=== PATIENT | male | born 1970 | race Caucasian/White ===

== ENCOUNTER 2018-08-16 11:51 | Outpatient (CLI) | payer OTHER ==
--- NOTE | 2018-08-16 13:52 | RAD ---
THREE VIEWS RIGHT FOOT: HISTORY: Displaced 1st metatarsal fracture. FINDINGS: AP, lateral, and oblique views left foot are obtained. Three views of the left foot demonstrate an area of lucency involving the lateral aspect of the base of the 1st metatarsal. This may represent a possible fracture. Age is indeterminate. Correlate wit h history. No evidence of acute left foot abnormality is seen. There is some soft tissue swelling along the eamon shaquille aspect of the left foot. IMPRESSION: Lateral aspect proximal 1st metatarsal fracture of indeterminate age. POS: [facility]
--- NOTE | 2018-08-16 13:58 | RAD ---
LEFT ANKLE THREE VIEWS: HISTORY: History of displaced fracture, first metatarsal. TECHNIQUE: AP, lateral, and oblique views of the left ankle. FINDINGS: Three views of the left ankle demonstrate an old, healed fracture involving the distal aspect of the left fibula. There appears to be an area of subtle radiolucency involving the medial malleolus. Thi s may represent an acute fracture. Correlate with clinical exam. Soft tissue ossification seen posterior to the distal tibia. IMPRESSION: Possible medial malleolar fracture. Correlate with previous old radiographs. Those are not availabl e at this institution. They were apparently performed at the [facility]. POS: [facility]
== END 2018-08-16 11:52 | disposition home or self-care (01) ==
LOC: BICRAD 11:51
PROVIDERS: ATTEND Podiatrist
DX: Z09 Encounter for follow-up examination after completed treatment for conditions other than malignant neoplasm (principal); Z87.81 Personal history of (healed) traumatic fracture